=== PATIENT | male | born 1990 | race African-American/Black ===

== ENCOUNTER 2021-08-08 18:34 | Emergency (ER) | payer OTHER ==
[~2021-08-08] VITALS: Ht 177.8 cm; Wt 106.3 kg
[2021-08-08] MEDS ORDERED: PROPARACAINE 0.5% OPHTH SOL 15ML OS ONE (19:05)
[2021-08-08] MEDS ORDERED: FLUORESCEIN OPHTH 1 MG STRIP OS ONE (19:05)
[2021-08-08] MEDS ORDERED: POLYTRIM OPTH DROPS 10ML OS ONE (19:35)
[2021-08-08] MEDS ORDERED: POLYSOL OS (19:36)
[2021-08-08 20:25] VITALS: BP 137/81
== END 2021-08-08 20:27 | disposition home or self-care (01) ==
LOC: M ED 18:34
DX: S05.02XA Injury of conjunctiva and corneal abrasion without foreign body, left eye, initial encounter (principal); X58.XXXA Exposure to other specified factors, initial encounter; Y99.0 Civilian activity done for income or pay